=== PATIENT | female | born 2000 | race Caucasian/White ===

== ENCOUNTER 2020-04-28 13:18 | Observation (INO) ==
[2020-04-28] MEDS ORDERED: NS 0.9% 1000 ml BAG 1,000 ML IV ONE ×2 (13:37→15:01)
[2020-04-28 16:21] LABS: ABS Basophils 0.1 10^3/ul (0-0.2); ABS Monocytes 1.5 10^3/ul (0-0.8); ABS Neutrophils 17.4 10^3/ul (1.5-7.7); Eosinophil % 0.1 %; Hematocrit 37 % (35-47); Hemoglobin 12.8 g/dL (12.0-16.0); Lymphocyte % 13.5 %; Mean Corpuscular HGB Conc 34 g/dL (31-36); Mean Corpuscular Hemoglobin 30 pg (27-31); Mean Corpuscular Volume 87 fL (80-97); Mean Platelet Volume 8.2 fL (7.4-10.4); Platelet Count 260 10^3/uL (150-450); Red Blood Count 4.29 10^6 /uL (3.70-4.87); Red Cell Distribution Width 13 % (10-15); White Blood Count 21.9 10^3/uL (3.5-10.8)
[2020-04-28 16:36] LABS: ALT 25 U/L (7-52); AST 20 U/L (13-39); Albumin 4.7 g/dL (3.2-5.2); Albumin/Globulin Ratio 1.3 (1-3); Alkaline Phosphatase 72 U/L (34-104); Anion Gap 9 mmol/L (2-11); Blood Urea Nitrogen 12 mg/dL (6-24); C Reactive Protein 214.74 mg/L (<8.01); CO2 Carbon Dioxide 24 mmol/L (22-32); Calcium 9.7 mg/dL (8.6-10.3); Chloride 102 mmol/L (101-111); EGFR African American 145.8 (>60); EGFR Non-African American 120.5 (>60); Globulin 3.6 g/dL (2-4); Glucose 96 mg/dL (70-100); Potassium 3.5 mmol/L (3.5-5.0); Sodium 135 mmol/L (135-145); Total Protein 8.3 g/dL (6.4-8.9)
[2020-04-28 16:42] LABS: HCG Pregnancy < 0.60 mIU/mL
[2020-04-28] MEDS ORDERED: Iohexol 300 (CONTRAST) 10 ML SDV IV ONE (17:10)
[2020-04-28] MEDS ORDERED: Piperacillin/Tazobac ADVAN 3.375 GM in NS 0.9% 100 ml BAG 100 ML IVPB ONE (17:20)
[2020-04-28] MEDS ORDERED: Bupivacaine 0.25% SDV 30 ML ONE (18:22)
[2020-04-28] MEDS ORDERED: DiMENhydriNATE IV 50 mg/ml 1 ml VIAL IV PUSH PRN (18:49)
[2020-04-28] MEDS ORDERED: Naloxone 0.4 mg VIAL 0.4 mg/ml 1 ml VIAL IV PRN ×2 (18:49→19:25)
[2020-04-28] MEDS ORDERED: HYDROmorphone 1 MG/1 ML SYRINGE IV PRN (18:49)
[2020-04-28] MEDS ORDERED: oxyCODONE/Acetamin 5/325 mg TAB PO PRN (19:27)
[2020-04-28] MEDS ORDERED: Ondansetron 4 mg VIAL 2 MG/ML 2 ml VIAL IV PRN (19:27)
[2020-04-28] MEDS ORDERED: HYDROmorphone 1 MG/1 ML SYRINGE IV SLOW PU PRN (19:27)
[2020-04-28] MEDS ORDERED: NS 0.9% 500 ml BAG 500 ML IV SCH (20:00)
[2020-04-28] MEDS: NS 0.9% 1000 ml BAG 1,000 ML IV SCH (21:17)
[2020-04-28] MEDS: Piperacillin/Tazobactam VIAL 3.375 GM in NS 0.9% 100 ml BAG 100 ML IVPB SCH (23:01)
[2020-04-29] MEDS: Piperacillin/Tazobactam VIAL 3.375 GM in NS 0.9% 100 ml BAG 100 ML IVPB SCH ×3 (03:39→06:29)
[2020-04-29] MEDS: NS 0.9% 1000 ml BAG 1,000 ML IV SCH (05:33)
[2020-04-29 11:48] VITALS: BP 113/50
== END 2020-04-29 12:10 | disposition home or self-care (01) ==
LOC: ED 13:18 → AA 17:36 → INTOOBSV 17:36 → SSU 19:42
PROVIDERS: ADMIT Surgery; ATTEND Surgery